=== PATIENT | female | born 1985 | race Two or more races ===

== ENCOUNTER → 2022-03-02 | Outpatient (CLI) | payer MEDICAID ==
[~2022-03-02] MED LIST: ALBUTEROL SULF 2.5 MG/0.5ML(0.5%) NEB SOLN ONE
== END | disposition home or self-care (01) ==
LOC: RT 08:41
PROVIDERS: ATTEND Internal Medicine Pulmonary Disease
DX: R06.02 Shortness of breath (principal); R06.00 Dyspnea, unspecified
CPT/HCPCS: 94060; 94727; 94729